=== PATIENT | female | born 1985 | race Two or more races ===

== ENCOUNTER 2016-12-10 19:35 | Emergency (ER) | payer MEDICAID, OTHER ==
[~2016-12-10] VITALS: Ht 162.6 cm; Wt 90.9 kg
[2016-12-10 20:35] VITALS: BP 128/78
== END 2016-12-10 21:43 | disposition home or self-care (01) ==
LOC: EMS 19:37
DX: J40 Bronchitis, not specified as acute or chronic (principal)
CPT/HCPCS: 81025; 99283